=== PATIENT | female | born 1950 | race Caucasian/White ===

== ENCOUNTER → 2016-07-06 | Outpatient (CLI) | payer MEDICARE, OTHER ==
[~2016-07-06] MED LIST: ASPIRIN EC81 M1 PO; CERTAGEN PO; GLUCOSAMINE CHON; HYDROCHLOROTHIA25 MG PO; HYDROCODON-ACE1 EACH PO; LEVOTHROID125 MCG PO; LIPITOR20 MG PO; LISINOPRIL PO; VITAL-D RX TABL1 TAB PO
--- NOTE | ~2016-07-06 | BD1 ---
[facility] A Service of [facility] & [facility] RADIOLOGY TEXT RESULTS PATIENT: JANEY SHERWOOD LOCATION: [facility] : 50 UNIT #: [id number] AGE: [address]: YA MORALES MD SEX: F ORDER DR: [id number] [address] [address] [id number] O MR#: [id number] Acc #: [id number] NAME: JANEY SHERWOOD : 1950 SEX: F STUDY DATE/TIME: 07/06/2016 13:57 UNIT: [facility] ROOM: STUDY DESCRIPTION: BD Dexa Bone Dens 1+ Site Attending Physician: Ya Morales M.D. Referring Physician: Ya Morales M.D. Ordering Physician: Ya Morales M.D. Primary Care Physician: Ya Morales M.D. MEDICAL IMAGING REPORT This report is preliminary unless electronic signature is present. EXAM DXA scan, 07/06/2016. HISTORY Status post menopause with no hormone replacement therapy. Osteopenia. Family history of breast carcinoma in mother. Arthritis and diabetes. Thyroid medication, levothyroxine use. Hypertension with blood pressure medication. FINDINGS Bone mineral density in the lumbar spine from L1 through L4 was 1.172 g/cm2, which is 0.1 standard deviation below the mean when compared to the young adult reference population, which is within the range of normal. This is 0.4 standard deviation above the mean, when compared to the age-matched population. Bone mineral density in the left femoral neck was 1.096 g/cm2, which is 0.4 standard deviation above the mean when compared to the young adult reference population, which is within the range of normal. This is 1.1 standard deviations above the mean, when compared to the age-matched population. Bone mineral density in the right femoral neck was 1.115 g/cm2, which is 0.6 standard deviation above the mean when compared to the young adult reference population, which is within the range of normal. This is 1.3 standard deviations above the mean when compared to the age-matched population. IMPRESSION Bone mineral density in the lumbar spine and the hips bilaterally within the range of normal. [facility] A Service of [facility] & [facility] RADIOLOGY TEXT RESULTS PATIENT: JANEY SHERWOOD LOCATION: [facility] : 50 UNIT #: [id number] AGE: [address]: YA MORALES MD SEX: F ORDER DR: Dictated by... Gibson Link M.D. THIS IS AN ELECTRONICALLY VERIFIED REPORT Gibson Link M.D. at 07/09/2016 10:35 AM Aureliano TD: 07/06/2016 18:41 JOB #: [id number] MEDICAL IMAGING REPORT
== END | disposition home or self-care (01) ==
LOC: SRAD 13:17
DX: Z13.820 Encounter for screening for osteoporosis (principal); Z78.0 Asymptomatic menopausal state
CPT/HCPCS: 77080